=== PATIENT | male | born 1930 | race African-American/Black ===

== ENCOUNTER 2017-02-25 22:25 | Inpatient (IN) | payer MEDICARE ==
[~2017-02-25] VITALS: Ht 167.6 cm; Wt 64.4 kg
[2017-02-25 22:25] VITALS: BP 117/77
[~2017-02-25 22:25] MED LIST: ASPI-1159 PO; ATOR10TA69 PO; CARV12.545 PO; FURO-151 PO; LABE100T PO; LOSA50TA20 PO; MAGN500C4 PO
[2017-02-26] MEDS ORDERED: ONDANSETRON HCL 4MG TABLET PO PRN
[2017-02-26] MEDS: LEVOFLOXACIN 250MG PREMIX 50 ML IV SCH (02:13)
[2017-02-26] MEDS: SUCRALFATE 1G TABLET PO SCH ×4 (06:22→21:02)
[2017-02-26] MEDS: PANTOPRAZOLE 40MG DR TABLET PO SCH (06:23)
[2017-02-26 08:00] VITALS: BP 106/64
[2017-02-26] MEDS: FERROUS SULFATE 325MG TABLET PO SCH ×3 (09:11→17:04)
[2017-02-26] MEDS: ALLOPURINOL 100 MG TABLET PO SCH (09:11)
[2017-02-26] MEDS: COLCHICINE 0.6MG TABLET PO SCH (09:11)
[2017-02-26] MEDS ORDERED: BISACODYL 5MG TABLET PO PRN (13:30)
[2017-02-26] MEDS: DOCUSATE SODIUM 100MG CAPSULE PO SCH (17:04)
[2017-02-26 20:00] VITALS: BP 123/76
[2017-02-26] MEDS ORDERED: LACTULOSE 20G/30ML UDC PO PRN (21:00)
[2017-02-27] MEDS ORDERED: FOLIC ACID 1 MG, THIAMINE HCL 100 MG, MVI, ADULT NO.1 10 ML in DEXT 5%/0.45% NACL 1000M... IV SCH ×4 (02:00)
[2017-02-27] MEDS: PANTOPRAZOLE 40MG DR TABLET PO SCH (06:28)
[2017-02-27] MEDS: SUCRALFATE 1G TABLET PO SCH ×4 (06:28→21:48)
[2017-02-27 06:37] LABS: BASOPHILS % 1.9 % (0.0-2.0); EOSINOPHILS % 2.3 % (0.0-5.0); HEMATOCRIT. 25.1 % (42.0-52.0); HEMOGLOBIN. 8.4 g/dL (14.0-18.0); LYMPHOCYTES % 12.9 % (20.0-50.0); MEAN CORPUSCULAR HEMOGLOBIN 30.6 pg (28.0-32.0); MEAN CORPUSCULAR VOLUME 91.3 fL (80.0-94.0); MEAN PLATELET VOLUME 7.6 fl (7.4-10.4); MONOCYTES % 10.9 % (2.0-8.0); PLATELET 471 x1000/uL (130-400); RED BLOOD CELL COUNT 2.75 mill/uL (4.7-6.1); RED CELL DISTRIBUTION WIDTH 17.4 % (11.6-14.6)
[2017-02-27] MEDS: ALLOPURINOL 100 MG TABLET PO SCH (09:00)
[2017-02-27] MEDS: DOCUSATE SODIUM 100MG CAPSULE PO SCH ×2 (09:00→17:01)
[2017-02-27] MEDS: FERROUS SULFATE 325MG TABLET PO SCH ×3 (09:00→17:01)
[2017-02-27 20:00] VITALS: BP 116/75
[2017-02-28 06:44] LABS: HEMATOCRIT. 24.5 % (42.0-52.0); HEMOGLOBIN. 8.4 g/dL (14.0-18.0); MEAN CORPUSCULAR VOLUME 90.6 fL (80.0-94.0); MEAN PLATELET VOLUME 7.9 fl (7.4-10.4); PLATELET 500 x1000/uL (130-400); RED BLOOD CELL COUNT 2.71 mill/uL (4.7-6.1); RED CELL DISTRIBUTION WIDTH 17.5 % (11.6-14.6)
[2017-02-28] MEDS: PANTOPRAZOLE 40MG DR TABLET PO SCH (07:05)
[2017-02-28] MEDS: SUCRALFATE 1G TABLET PO SCH ×4 (07:05→20:58)
[2017-02-28 07:22] LABS: PHOSPHORUS 3.4 mg/dL (2.5-4.9)
[2017-02-28 08:00] VITALS: BP 122/77
[2017-02-28] MEDS: LEVOFLOXACIN 250MG PREMIX 50 ML IV SCH (08:30)
[2017-02-28] MEDS: ALLOPURINOL 100 MG TABLET PO SCH (08:30)
[2017-02-28] MEDS: FERROUS SULFATE 325MG TABLET PO SCH ×3 (08:30→17:06)
[2017-02-28] MEDS: COLCHICINE 0.6MG TABLET PO SCH (08:30)
[2017-02-28] MEDS: DOCUSATE SODIUM 100MG CAPSULE PO SCH ×2 (08:30→17:06)
[2017-02-28 10:50] LABS: PLATELET ESTIMATE INCREASED
[2017-02-28] MEDS: LEVOFLOXACIN 250MG TABLET PO SCH (11:33)
[2017-02-28 20:00] VITALS: BP 120/77
[2017-02-28] MEDS: ACETAMINOPHEN 325MG TABLET PO PRN (22:36)
[2017-02-28 22:45] LABS: CLARITY URINE CLEAR (CLEAR); COLOR URINE YELLOW (YELLOW); GLUCOSE URINE NEGATIVE (NEGATIVE); KETONES URINE NEGATIVE (NEGATIVE); LEUKOCYTE ESTERASE URINE NEGATIVE (NEGATIVE); NITRITE URINE NEGATIVE (NEGATIVE); OCCULT BLOOD URINE NEGATIVE (NEGATIVE); PROTEIN URINE TRACE (NEGATIVE); SPECIFIC GRAVITY URINE 1.018 (1.005-1.030); UROBILINOGEN URINE 0.2 E.U./dL (0.2-1.0)
[2017-03-01] MEDS: SUCRALFATE 1G TABLET PO SCH ×4 (06:15→20:55)
[2017-03-01] MEDS: PANTOPRAZOLE 40MG DR TABLET PO SCH (06:15)
[2017-03-01 08:00] VITALS: BP_SYST 121; BP_SYST 122; BP_DIAS 78; BP_DIAS 82
[2017-03-01] MEDS: FERROUS SULFATE 325MG TABLET PO SCH ×3 (08:14→16:49)
[2017-03-01] MEDS: DOCUSATE SODIUM 100MG CAPSULE PO SCH ×2 (08:14→16:48)
[2017-03-01] MEDS: ALLOPURINOL 100 MG TABLET PO SCH (08:14)
[2017-03-01] MEDS: ACETAMINOPHEN 325MG TABLET PO PRN (16:50)
[2017-03-01 21:03] VITALS: BP 115/71
[2017-03-02] MEDS: PANTOPRAZOLE 40MG DR TABLET PO SCH (06:27)
[2017-03-02] MEDS: SUCRALFATE 1G TABLET PO SCH ×4 (06:27→21:34)
[2017-03-02 08:00] VITALS: BP 119/76
[2017-03-02] MEDS: FERROUS SULFATE 325MG TABLET PO SCH ×3 (08:15→17:33)
[2017-03-02] MEDS: ACETAMINOPHEN 325MG TABLET PO PRN ×2 (08:15→22:33)
[2017-03-02] MEDS: ALLOPURINOL 100 MG TABLET PO SCH (08:15)
[2017-03-02] MEDS: DOCUSATE SODIUM 100MG CAPSULE PO SCH ×2 (08:15→17:33)
[2017-03-02] MEDS: LEVOFLOXACIN 250MG TABLET PO SCH (11:52)
[2017-03-02 20:00] VITALS: BP 121/81
[2017-03-03] MEDS: SUCRALFATE 1G TABLET PO SCH ×4 (06:07→22:31)
[2017-03-03] MEDS: PANTOPRAZOLE 40MG DR TABLET PO SCH (06:07)
[2017-03-03 08:00] VITALS: BP 123/80
[2017-03-03] MEDS: ALLOPURINOL 100 MG TABLET PO SCH (08:19)
[2017-03-03] MEDS: DOCUSATE SODIUM 100MG CAPSULE PO SCH ×2 (08:19→16:42)
[2017-03-03] MEDS: COLCHICINE 0.6MG TABLET PO SCH (08:19)
[2017-03-03] MEDS: FERROUS SULFATE 325MG TABLET PO SCH ×3 (08:19→16:42)
[2017-03-03] MEDS: ACETAMINOPHEN 325MG TABLET PO PRN (09:33)
[2017-03-03 20:00] VITALS: BP 122/78
[2017-03-03] MEDS ORDERED: EPOETIN ALFA 10000UNITS/ML VIAL SUBCUT SCH (21:00)
[2017-03-04] MEDS: PANTOPRAZOLE 40MG DR TABLET PO SCH (06:06)
[2017-03-04] MEDS: SUCRALFATE 1G TABLET PO SCH ×4 (06:06→21:37)
[2017-03-04 07:31] LABS: BASOPHILS % 3.2 % (0.0-2.0); EOSINOPHILS % 3.7 % (0.0-5.0); HEMATOCRIT. 24.3 % (42.0-52.0); LYMPHOCYTES % 10.9 % (20.0-50.0); MEAN CORPUSCULAR HEMOGLOBIN 30.4 pg (28.0-32.0); MEAN PLATELET VOLUME 7.5 fl (7.4-10.4); MONOCYTES % 12.1 % (2.0-8.0); NEUTROPHILS % 70.1 % (40.0-76.0); PLATELET 433 x1000/uL (130-400); RED BLOOD CELL COUNT 2.64 mill/uL (4.7-6.1); RED CELL DISTRIBUTION WIDTH 17.2 % (11.6-14.6)
[2017-03-04 08:39] VITALS: BP 120/81
[2017-03-04] MEDS: FERROUS SULFATE 325MG TABLET PO SCH ×3 (08:48→16:45)
[2017-03-04] MEDS: DOCUSATE SODIUM 100MG CAPSULE PO SCH ×2 (08:48→16:44)
[2017-03-04] MEDS: ALLOPURINOL 100 MG TABLET PO SCH (08:48)
[2017-03-04] MEDS: ACETAMINOPHEN 325MG TABLET PO PRN (09:52)
[2017-03-04] MEDS: LEVOFLOXACIN 250MG TABLET PO SCH (11:55)
[2017-03-04 12:00] VITALS: BP 120/78
[2017-03-04 20:00] VITALS: BP 113/72
[2017-03-05] MEDS: PANTOPRAZOLE 40MG DR TABLET PO SCH (06:18)
[2017-03-05] MEDS: SUCRALFATE 1G TABLET PO SCH ×4 (06:18→22:07)
[2017-03-05 08:00] VITALS: BP 126/82
[2017-03-05] MEDS: COLCHICINE 0.6MG TABLET PO SCH (08:06)
[2017-03-05] MEDS: ALLOPURINOL 100 MG TABLET PO SCH (08:06)
[2017-03-05] MEDS: FERROUS SULFATE 325MG TABLET PO SCH ×3 (08:06→16:18)
[2017-03-05] MEDS: DOCUSATE SODIUM 100MG CAPSULE PO SCH ×2 (08:06→16:18)
[2017-03-05] MEDS: ACETAMINOPHEN 325MG TABLET PO PRN ×2 (08:07→17:17)
[2017-03-05 20:00] VITALS: BP 112/75
[2017-03-06] MEDS: PANTOPRAZOLE 40MG DR TABLET PO SCH (06:21)
[2017-03-06] MEDS: SUCRALFATE 1G TABLET PO SCH ×4 (06:21→21:12)
[2017-03-06 08:00] VITALS: BP 113/74
[2017-03-06] MEDS: DOCUSATE SODIUM 100MG CAPSULE PO SCH ×2 (08:56→17:59)
[2017-03-06] MEDS: ACETAMINOPHEN 325MG TABLET PO PRN ×2 (08:56→18:00)
[2017-03-06] MEDS: ALLOPURINOL 100 MG TABLET PO SCH (08:57)
[2017-03-06] MEDS: FERROUS SULFATE 325MG TABLET PO SCH ×3 (08:57→17:59)
[2017-03-06] MEDS: LEVOFLOXACIN 250MG TABLET PO SCH (11:53)
[2017-03-06 20:00] VITALS: BP 122/77
[2017-03-07] MEDS: PANTOPRAZOLE 40MG DR TABLET PO SCH (06:38)
[2017-03-07] MEDS: SUCRALFATE 1G TABLET PO SCH ×2 (06:38→13:15)
[2017-03-07 08:00] VITALS: BP 120/80
[2017-03-07] MEDS: FERROUS SULFATE 325MG TABLET PO SCH ×2 (08:29→13:15)
[2017-03-07] MEDS: DOCUSATE SODIUM 100MG CAPSULE PO SCH (08:29)
[2017-03-07] MEDS: COLCHICINE 0.6MG TABLET PO SCH (08:30)
[2017-03-07] MEDS: ALLOPURINOL 100 MG TABLET PO SCH (08:30)
[2017-03-07] MEDS: ACETAMINOPHEN 325MG TABLET PO PRN (09:42)
[2017-03-07 13:43] VITALS: BP 120/80
== END 2017-03-07 14:30 | disposition home health service (06) | DRG 73 ==
PROVIDERS: ADMIT Psychiatry & Neurology Neurology; ATTEND Internal Medicine
DX: G62.9 Polyneuropathy, unspecified (principal); K25.4 Chronic or unspecified gastric ulcer with hemorrhage; N17.9 Acute kidney failure, unspecified; I47.2 Ventricular tachycardia; K22.11 Ulcer of esophagus with bleeding; D62 Acute posthemorrhagic anemia; N39.0 Urinary tract infection, site not specified; E87.5 Hyperkalemia; J44.9 Chronic obstructive pulmonary disease, unspecified; D63.8 Anemia in other chronic diseases classified elsewhere; E78.5 Hyperlipidemia, unspecified; I25.10 Atherosclerotic heart disease of native coronary artery without angina pectoris; K21.9 Gastro-esophageal reflux disease without esophagitis; M19.90 Unspecified osteoarthritis, unspecified site; K44.9 Diaphragmatic hernia without obstruction or gangrene; I13.10 Hypertensive heart and chronic kidney disease without heart failure, with stage 1 through stage 4 chronic kidney disease, or unspecified chronic kidney disease; N18.2 Chronic kidney disease, stage 2 (mild); F06.8 Other specified mental disorders due to known physiological condition; F06.31 Mood disorder due to known physiological condition with depressive features; B96.20 Unspecified Escherichia coli [E. coli] as the cause of diseases classified elsewhere; E79.0 Hyperuricemia without signs of inflammatory arthritis and tophaceous disease; K62.3 Rectal prolapse; R53.81 Other malaise; Z87.11 Personal history of peptic ulcer disease; Z87.19 Personal history of other diseases of the digestive system; Z87.440 Personal history of urinary (tract) infections
CPT/HCPCS: 36415; 80048; 80069; 80076; 81001; 83036; 83735; 84100; 84550; 85025; 85651; 97110; 97116; 97163; 97167; 97530; 97535; J0885; J1956; J3411; J3490; J7050